=== PATIENT | female | born 2000 | race African-American/Black ===

== ENCOUNTER 2023-11-17 11:11 | Emergency (ER) | payer MEDICAID ==
[~2023-11-17] VITALS: Ht 152.4 cm; Wt 55.0 kg
[2023-11-17 11:21] VITALS: O2SAT 100
[2023-11-17 11:46] LABS: BASOPHILS % 0.5 % (0.0-2.0); EOSINOPHILS % 2.6 % (0.0-5.0); HEMATOCRIT. 37.4 % (36.0-48.0); HEMOGLOBIN. 11.8 g/dL (12.0-16.0); LYMPHOCYTES % 44.5 % (20.0-50.0); MEAN CORPUSCULAR HEMOGLOBIN 25.8 pg (28.0-32.0); MEAN CORPUSCULAR HGB CONC 31.6 g/dL (31.0-37.0); MEAN CORPUSCULAR VOLUME 81.7 fL (81.0-99.0); MEAN PLATELET VOLUME 7.2 fl (7.4-10.4); MONOCYTES % 8.4 % (2.0-8.0); PLATELET 325 x1000/uL (130-400); RED BLOOD CELL COUNT 4.58 mill/uL (4.2-5.4); RED CELL DISTRIBUTION WIDTH 14.4 % (11.6-14.6); WHITE BLOOD COUNT 4.6 x1000/uL (4.5-11.0)
[2023-11-17 11:53] LABS: CHLORIDE 106 mEq/L (98-107); POTASSIUM 3.7 mEq/L (3.5-5.1); SODIUM 139 mEq/L (136-145)
[2023-11-17 11:54] LABS: CALCIUM 9.8 mg/dL (8.7-10.4); CARBON DIOXIDE 27 mEq/L (21-32)
[2023-11-17 11:59] LABS: CREATININE 0.7 mg/dL (0.6-1.0); GLUCOSE 106 mg/dL (70-105); UREA NITROGEN BLOOD 9 mg/dL (9-23)
[2023-11-17 12:37] LABS: B-HCG QUANTITATIVE 1 mIU/mL (<3)
[2023-11-17 13:32] LABS: CLARITY URINE CLEAR (CLEAR); COLOR URINE YELLOW (YELLOW); GLUCOSE URINE NEGATIVE (NEGATIVE); KETONES URINE NEGATIVE (NEGATIVE); LEUKOCYTE ESTERASE URINE NEGATIVE (NEGATIVE); NITRITE URINE NEGATIVE (NEGATIVE); OCCULT BLOOD URINE 2+ (NEGATIVE); PH URINE 6.5 (4.5-8.0); PROTEIN URINE NEGATIVE (NEGATIVE); SPECIFIC GRAVITY URINE 1.014 (1.005-1.030)
[2023-11-17 13:55] LABS: BACTERIA URINE NONE SEEN; RBC URINE 25-50 /hpf (0-2); SQUAMOUS EPITHELIAL CELL URINE 1+ /lpf (RARE/1+); WBC URINE 0-2 /hpf (0-2); YEAST URINE NONE SEEN
[2023-11-17 13:57] VITALS: BP 106/66; PULSE 69; RESP 18; TEMP 98
== END 2023-11-17 14:01 | disposition home or self-care (01) ==
LOC: ER 11:23
DX: N93.8 Other specified abnormal uterine and vaginal bleeding (principal)
CPT/HCPCS: 36415; 80048; 81003; 81025; 84702; 85025; 86850; 86900; 99283

== ENCOUNTER 2025-01-28 12:08 | Emergency (ER) | payer MEDICAID ==
[~2025-01-28] VITALS: Ht 149.9 cm; Wt 62.0 kg
[2025-01-28 12:29] VITALS: O2SAT 99
[2025-01-28] MEDS: DIPHENHYDRAMINE 25MG CAPSULE PO ONE (14:07)
[2025-01-28] MEDS ORDERED: PRED10TA23 MT (14:31)
[2025-01-28] MEDS ORDERED: CETI5TAB5 MT (14:31)
[2025-01-28 14:51] VITALS: BP 114/71; PULSE 78; RESP 15; TEMP 36.7; O2SAT 99
== END 2025-01-28 14:52 | disposition home or self-care (01) ==
LOC: ER 12:08
DX: L50.9 Urticaria, unspecified (principal)
CPT/HCPCS: 81025; 99283; Q0163; Z7610; A4606